=== PATIENT | female | born 2000 | race Caucasian/White ===

== ENCOUNTER 2021-03-01 04:40 | Observation (INO) | payer OTHER ==
[~2021-03-01] VITALS: Ht 157.5 cm; Wt 48.1 kg
[~2021-03-01 04:40] MED LIST: BACTRIM DS TAB1 EACH PO; CEFUROXIME500 MG PO; IBUPROFEN600 MG PO; ONDANSETRON ODT4 MG PO; PYRIDIUM200 MG PO
[2021-03-01 04:55] LABS: HEMOGLOBIN 12.5 gm/dl (12.3-15.3); RED BLOOD COUNT 4.04 M/UL (4.00-5.10); WHITE BLOOD COUNT 7.3 K/UL (4.5-11.0)
[2021-03-01 05:27] LABS: BUN/CREATININE RATIO 12 (0-10)
--- NOTE | 2021-03-01 13:20 | NUR ---
PATIENT HAD SEVERAL CONVERSATIONS WITH THE NURSE AND A CONVERSATION WITH THE ATTENDING PHYSICIAN, AND AGAINST MEDICAL ADVISE DECIDED TO SIGN HER SELF OUT AMA. SHE IS ALERT AND ORIENTED, AND HAS HAD THE MEDICAL AND LEGAL RAMIFICATIONS EXPLAINED TO HER. SHE STILL INSISTS ON LEAVING AGAINST MEDICAL ADVICE. NURSE WILL PREPARE PAPER WORK FOR ALLEN. WILL CONTINUE TO MONITOR.
== END 2021-03-01 13:58 | disposition left against medical advice (07) ==
LOC: ER1 04:40 → CDU 08:33 → MED SURG 4 10:25
PROVIDERS: Family Medicine; ADMIT Internal Medicine
DX: F10.10 Alcohol abuse, uncomplicated (principal); I95.9 Hypotension, unspecified; E87.6 Hypokalemia; E87.2 Acidosis; Y90.7 Blood alcohol level of 200-239 mg/100 ml; Z20.822 Contact with and (suspected) exposure to COVID-19; Z53.29 Procedure and treatment not carried out because of patient's decision for other reasons
CPT/HCPCS: 70450; 71045; 80053; 80307; 81001; 82550; 82553; 83605; 83690; 83735; 83874; 84484; 84703; 85025; 93005; 99285; G0378; G0480; U0002